=== PATIENT | male | born 1950 | race Caucasian/White ===

== ENCOUNTER 2018-08-06 20:13 | Emergency (ER) | payer MEDICAID ==
[~2018-08-06] VITALS: Ht 180.3 cm; Wt 79.0 kg
[2018-08-06] MEDS ORDERED: SODIUM CHLORIDE 0.9% 1,000 ML IV ONE (20:33)
[2018-08-06] MEDS ORDERED: ONDANSETRON HCL 4MG/2ML INJ IV STA (20:33)
[2018-08-06] MEDS ORDERED: DOXYCYCLINE HYCLATE 100 MG/VIAL IV ONE (21:00)
[2018-08-06] MEDS ORDERED: DOXYCYCLINE 100MG in DEXTROSE 5% WATER 100ML IV NR (21:05)
[2018-08-06] MEDS ORDERED: LEVOFLOXACIN 500MG PREMIX 100 ML IV ONE (21:15)
[2018-08-06 21:30] LABS: BASOPHILS % 0.7 % (0.0-2.0); HEMATOCRIT. 39.5 % (42.0-52.0); HEMOGLOBIN. 13.3 g/dL (14.0-18.0); MEAN CORPUSCULAR HEMOGLOBIN 35.4 pg (28.0-32.0); MEAN CORPUSCULAR VOLUME 105.1 fL (80.0-94.0); MEAN PLATELET VOLUME 8.6 fl (7.4-10.4); MONOCYTES % 10.4 % (2.0-8.0); NEUTROPHILS % 52.9 % (40.0-76.0); PLATELET 150 x1000/uL (130-400); RED BLOOD CELL COUNT 3.76 mill/uL (4.7-6.1); RED CELL DISTRIBUTION WIDTH 13.2 % (11.6-14.6)
[2018-08-06 21:42] LABS: CHLORIDE 110 mEq/L (98-107)
[2018-08-06] MEDS ORDERED: LACTATED RINGERS 1,000 ML IV STA (22:09)
[2018-08-06 23:51] VITALS: BP 116/82
== END 2018-08-07 00:14 | disposition home or self-care (01) ==
LOC: ER 20:53
DX: R11.10 Vomiting, unspecified (principal); R19.7 Diarrhea, unspecified; R10.0 Acute abdomen; R03.0 Elevated blood-pressure reading, without diagnosis of hypertension; M54.9 Dorsalgia, unspecified
CPT/HCPCS: 36415; 80053; 83605; 83690; 84484; 85025; 85610; 93005; 96361; 96365; 96375; 99285; J1956; J2405; J3490; J7030; J7060; J7120

== ENCOUNTER 2021-08-08 03:31 | Emergency (ER) | payer MEDICAID, MEDICARE ==
[~2021-08-08] VITALS: Ht 188 cm; Wt 79.0 kg
[2021-08-08 03:34] VITALS: BP 120/82
== END 2021-08-08 05:12 | disposition left against medical advice (07) ==
LOC: ER 03:31
DX: Z53.21 Procedure and treatment not carried out due to patient leaving prior to being seen by health care provider (principal); R10.9 Unspecified abdominal pain
CPT/HCPCS: 93005